=== PATIENT | female | born 1990 | race Caucasian/White ===

== ENCOUNTER 2018-07-25 14:01 | Day surgery (SDC) | payer MEDICAID ==
[~2018-07-25] VITALS: Ht 172.7 cm; Wt 104.3 kg
[2018-07-25] VITALS (10 sets, daily range): BP systolic 90–124; BP diastolic 39–83
[~2018-07-25 14:01] MED LIST: ACET325T38 PO; ALPR1TAB21; CEPH500C PO; DIPH25CA79 PO; FERR325C PO; FERR325T18 PO; FOLI0.4T2; HYDR1CAP2 PO; HYDR1TAB PO; IBP800T PO; IBUP-1773 PO; METR500T PO; NITR-65 PO; ONDA-41 PO; ONDA4TAB11 PO; OXYC-12 PO; PREN-115 PO; PREN1TAB39 PO; PRM25T PO; vit d
--- NOTE | 2018-07-25 14:26 | NUR ---
pt going through 5-6 pads per hour.
[2018-07-25] MEDS ORDERED: NS IV ONE (14:30)
[2018-07-25 14:32] LABS: BASOPHILS % (AUTO) 0 % (0-10); EOSINOPHILS # (AUTO) 0.5 10^3/uL (0.0-0.3); EOSINOPHILS % (AUTO) 3 % (0-10); HEMATOCRIT 35 % (35-52); HEMOGLOBIN 10.9 G/DL (11.5-16.0); LYMPHOCYTES % (AUTO) 12 % (12-44); MEAN CORPUSCULAR HEMOGLOBIN 22 PG (25-34); MEAN CORPUSCULAR HGB CONC 31 G/DL (32-36); MEAN CORPUSCULAR VOLUME 71 FL (80-99); MEAN PLATELET VOLUME 11.4 FL (7.4-10.4); MONOCYTES # (AUTO) 0.7 X 10^3 (0.0-1.0); MONOCYTES % (AUTO) 4 % (0-12); NEUTROPHILS # (AUTO) 12.9 X 10^3 (1.8-7.8); NEUTROPHILS % (AUTO) 80 % (42-75); PLATELET COUNT 162 10^3/uL (130-400); RED CELL DISTRIBUTION WIDTH 18.4 % (10.0-14.5); WHITE BLOOD COUNT 16.1 10^3/uL (4.3-11.0)
[2018-07-25 14:43] LABS: ALANINE AMINOTRANSFERASE 11 U/L (0-55); ALBUMIN 4.1 GM/DL (3.2-4.5); ALKALINE PHOSPHATASE 67 U/L (40-136); BILIRUBIN,TOTAL 0.3 MG/DL (0.1-1.0); BUN/CREATININE RATIO 8; CALCIUM 9.6 MG/DL (8.5-10.1); CARBON DIOXIDE 20 MMOL/L (21-32); CHLORIDE 108 MMOL/L (98-107); CREATININE SERUM 0.86 MG/DL (0.60-1.30); GFR ESTIMATED > 60; GLUCOSE 141 MG/DL (70-105); POTASSIUM 4.1 MMOL/L (3.6-5.0); SODIUM 139 MMOL/L (135-145); TOTAL PROTEIN 7.7 GM/DL (6.4-8.2)
[2018-07-25 14:54] LABS: ANISOCYTOSIS SLIGHT; BAND NEUTROPHILS 7 %; ELLIPT/OVALOCYTES SLIGHT; HYPOCHROMASIA SLIGHT; LYMPHOCYTES % (MANUAL) 12 %; MICROCYTOSIS MODERATE; MONOCYTES % (MANUAL) 6 %; NEUTROPHILS % (MANUAL) 75 %; POIKILOCYTOSIS SLIGHT
--- NOTE | 2018-07-25 15:04 | ED GU-Female ---
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 PT STATES SHE HAD LIGHT SPOTTING ON THURSDAY. PT STATES SHE STARTED HAVING SEVERE CRAMPING AND BLEEDING TODAY AND YESTERDAY. PT STATES THIS IS HER 4TH MISCARRIAGE AND 9TH . PT STATES HAVING LARGE CLOTS TODAY. PT STATES SHE HAS A HISTORY OF CHRONIC ANEMIA. Nursing Sepsis Screen: No Definite Risk Source: patient Exam Limitations: no limitations History of Present Illness Date Seen by Provider: July 25, 2018 Time Seen by Provider: 14:16 Initial Comments Here with report of miscarriage. Having large clots and lots of bleeding today over the last hour and has soaked 5 pads in her parents currently. Complaints of some abdominal cramping. She's had multiple miscarriages previously. She has not had ultrasound yet on this and has not had OB appointment yet. She plans to follow with Dr. Doyle. Reports that she's chronically anemic. Timing/Duration: this morning, getting worse Severity/Quality: moderate, cramping Location: unknown, suprapubic Radiation: vaginal Activities at Onset: none Prior Genitourinary Problems: similar symptoms Modifying Factors: Worsens With Movement; Improves With Resting Associated Symptoms: abdominal pain; No fever/chills, No lower back pain, No nausea/vomiting, No urinary frequency Allergies and Home Medications Allergies Coded Allergies: NKANo Known Allergies (Verified Allergy, Unknown, 06/02/06) Home Medications Acetaminophen 325 Mg Tablet, 325 MG PO PRN, (Reported) Diphenhydramine HCl 25 Mg Capsule, 50 MG PO PRN, (Reported) Ferrous Sulfate 325 Mg Tablet, 325 MG PO TID Prescribed by: MARIA TERESA DOYLE on 07/19/15702 Ibuprofen 600 Mg Tablet, 600 MG PO Q6H Prescribed by: MARIA TERESA DOYLE on 07/19/15702 Patient Home Medication List Home Medication List Reviewed: Yes Review of Systems Review of Systems Constitutional: see HPI; No chills, No fever EENTM: no symptoms reported Respiratory: no symptoms reported Cardiovascular: no symptoms reported Gastrointestinal: see HPI Genitourinary: see HPI : Yes Musculoskeletal: no symptoms reported All Other Systemes Reviewed Negative Unless Noted: Yes Past Poisgfp-Jsakay-Vpxzvi Hx Past Med/Social Hx: Reviewed Nursing Past Med/Soc Hx Patient Social History Alcohol Use: Denies Use Recreational Drug Use: No Smoking Status: Never a Smoker Recent Foreign Travel: No Contact w/Someone Who Travel: No Recent Infectious Disease Expo: No Recent Hopitalizations: No Physical Abuse: No Sexual Abuse: No Mistreated: No Fear: No Immunizations Up To Date Tetanus Booster (TDap): Unknown PED Vaccines UTD: Yes Seasonal Allergies Seasonal Allergies: Yes Past Medical History Surgeries: Yes (fix nose fx) Gallbladder, Tonsillectomy Respiratory: No Cardiac: No Neurological: No Last Menstrual Period: May 20, 2018 Hx : 9 Hx Para: 5 Hx Total # of Abortions (Sp): 4 Reproductive Disorders: No Female Reproductive Disorders: Denies Sexually Transmitted Disease: No HIV/AIDS: No Bladder Infection Gastrointestinal: No Musculoskeletal: No Endocrine: No Cancer: No Psychosocial: No Integumentary: No Blood Disorders: Yes (chronic anemia) Adverse Reaction/Blood Tranf: No Family Medical History Reviewed Nursing Family Hx FHx: skin cancer 19 FATHER No Pertinent Family Hx Physical Exam Vital Signs Vital Signs - First Documented 07/25/18 14:01 Temp 97.4 Pulse 78 Resp 18 B/P (MAP) 128/79 (95) Capillary Refill : Less Than 3 Seconds Height, Weight, BMI Height: 5'8" Weight: 230lbs. 0.0oz. [id number]; 38.8 BMI Method:Stated General Appearance: WD/WN, no apparent distress HEENT: PERRL/EOMI, pharynx normal Neck: full range of motion, supple Cardiovascular: regular rate, rhythm, no murmur Respiratory: lungs clear, normal breath sounds Gastrointestinal: non tender, soft Back: normal inspection, no CVA tenderness, no vertebral tenderness Extremities: non-tender, normal inspection Neurologic/Psychiatric: alert, oriented x 3 Skin: normal color, warm/dry Progress/Results/Core Measures Suspected Sepsis Recent Fever Within 48 Hours: No Infection Criteria Present: None New/Unexplained Altered Menta: No Sepsis Screen: No Definite Risk SIRS Temperature:97.4 Pulse: 78 Respiratory Rate: 18 Laboratory Tests 07/25/18 14:10: White Blood Count 16.1H Blood Pressure 128 /79 Mean: 95 Laboratory Tests 07/25/18 14:10: Creatinine 0.86, Platelet Count 162, Total Bilirubin 0.3 Results/Orders Lab Results Laboratory Tests Test 07/25/18 14:10 Range/Units White Blood Count 16.1 H 4.3-11.0 10^3/uL Red Blood Count 5.00 4.35-5.85 10^6/uL Hemoglobin 10.9 L 11.5-16.0 G/DL Hematocrit 35 35-52 % Mean Corpuscular Volume 71 L 80-99 FL Mean Corpuscular Hemoglobin 22 L 25-34 PG Mean Corpuscular Hemoglobin Concent 31 L 32-36 G/DL Red Cell Distribution Width 18.4 H 10.0-14.5 % Platelet Count 162 130-400 10^3/uL Mean Platelet Volume 11.4 H 7.4-10.4 FL Neutrophils (%) (Auto) 80 H 42-75 % Lymphocytes (%) (Auto) 12 12-44 % Monocytes (%) (Auto) 4 0-12 % Eosinophils (%) (Auto) 3 0-10 % Basophils (%) (Auto) 0 0-10 % Neutrophils # (Auto) 12.9 H 1.8-7.8 X 10^3 Lymphocytes # (Auto) 2.0 1.0-4.0 X 10^3 Monocytes # (Auto) 0.7 0.0-1.0 X 10^3 Eosinophils # (Auto) 0.5 H 0.0-0.3 10^3/uL Basophils # (Auto) 0.0 0.0-0.1 10^3/uL Neutrophils % (Manual) 75 % Lymphocytes % (Manual) 12 % Monocytes % (Manual) 6 % Band Neutrophils 7 % Hypochromasia SLIGHT Poikilocytosis SLIGHT Anisocytosis SLIGHT Microcytosis MODERATE Elliptocytes SLIGHT Sodium Level 139 135-145 MMOL/L Potassium Level 4.1 3.6-5.0 MMOL/L Chloride Level 108 H 98-107 MMOL/L Carbon Dioxide Level 20 L 21-32 MMOL/L Anion Gap 11 5-14 MMOL/L Blood Urea Nitrogen 7 7-18 MG/DL Creatinine 0.86 0.60-1.30 MG/DL Estimat Glomerular Filtration Rate > 60 BUN/Creatinine Ratio 8 Glucose Level 141 H 70-105 MG/DL Calcium Level 9.6 8.5-10.1 MG/DL Corrected Calcium 9.5 8.5-10.1 MG/DL Total Bilirubin 0.3 0.1-1.0 MG/DL Aspartate Amino Transf (AST/SGOT) 25 5-34 U/L Alanine Aminotransferase (ALT/SGPT) 11 0-55 U/L Alkaline Phosphatase 67 40-136 U/L Total Protein 7.7 6.4-8.2 GM/DL Albumin 4.1 3.2-4.5 GM/DL Human Chorionic Gonadotropin, Quant 8 H <5 MIU/ML My Orders Orders - JASPAL CHAPMAN MD Cbc With Automated Diff (07/25/18 14:20) Comprehensive Metabolic Panel (07/25/18 14:20) Red Cells Leukocytes Reduced (07/25/18 14:20) Hcg,Quantitative (07/25/18 14:20) Ed Iv/Invasive Line Start (07/25/18 14:20) Ns Iv 1000 Ml (Sodium Chloride 0.9%) (07/25/18 14:30) Type And Screen (07/25/18 14:20) Manual Differential (07/25/18 14:10) Rhogam Administration (07/25/18 15:19) Medications Given in ED Current Medications Medications Dose Ordered Sig/Rayna Route Start Time Stop Time Status Last Admin Dose Admin Sodium Chloride 3,129.78 ml @ 3,129.78 mls/hr ONCE ONCE IV 07/25/18 14:30 07/25/18 15:29 DC 07/25/18 14:33 3,129.78 MLS/HR Vital Signs/I&O 07/25/18 14:01 Temp 97.4 Pulse 78 Resp 18 B/P (MAP) 128/79 (95) Capillary Refill : Less Than 3 Seconds Blood Pressure Mean: 95 Progress Note : Progress Note Seen and evaluated. Patient has significant amount of bleeding on arrival. Blood clots noted at the vaginal opening and cleared. Still bleeding. Bedside ultrasound performed that shows hyperechoic structures within the uterus that appeared to be complex and more like blood and tissue. No obvious pole or heart tones noted. Labs ordered including type and cross for 2 units. Normal saline 1 L bolus ordered. I did discuss the case with Dr. Davis at 1421. He will come to the emergency department and evaluate the patient. 1525: Dr. Davis has evaluated the patient and patient will go to surgery. Auralgan has been ordered as she is A- and this will be administered. Bleeding has slowed a little. Patient does want to get D&C and this has been set up and surgically has been called. Patient to go the OR. Patient and family agree with plan. Departure Communication (Admissions) Time/Spoke to Admitting Phy: 14:21 Impression Primary Impression: Incomplete miscarriage with blood clot Disposition: ADMITTED INPATIENT Condition: Stable Admissions Decision to Admit Reason: Admit from ER (General) Decision to Admit/Date: July 25, 2018 Time/Decision to Admit Time: 15:00 Departure-Patient Inst. Referrals: MARIA TERESA DOYLE DO (PCP/Family) Primary Care Physician JASPAL CHAPMAN MD July 25, 2018 15:04
[2018-07-25] MEDS ORDERED: D5 LR IV SOLUTION 1,000 ML IV SCH (16:09)
[2018-07-25] MEDS ORDERED: OXYC1TAB87 PO (16:12)
[2018-07-25] MEDS ORDERED: IBUP-1780 PO (16:12)
--- NOTE | 2018-07-25 16:13 | Progress Note-Pre Operative ---
Pre-Operative Progress Note H&P Reviewed The H&P was reviewed, patient examined and no changes noted. Date Seen by Provider: July 25, 2018 Time Seen by Provider: 16:13 Date H&P Reviewed: July 25, 2018 Time H&P Reviewed: 16:13 Pre-Operative Diagnosis: First trimester missed TYLER CUENCA MD July 25, 2018 16:13
--- NOTE | 2018-07-25 16:13 | Discharge Instructions ---
Discharge Instructions Discharge Medications New, Converted or Re-Newed RX: RX on Chart Patient Instructions Patient Instructions: As directed Return to The Hospital For: as directed Activity & Diet Discharge Diet: No Restrictions Activity as Tolerated: No Orders-Post D/C & Referrals Follow Up Appt: Call to make follow up appt. for patient in 2 weeks. Activity: Rest for 24 hours, than as tolerated. Please call in RX to patient pharmacy. Diet: As tolerated-Clear Liquids only if nauseated. Tomorrow, may shower or tub bathe as desired. No driving for 24 hours, no alcoholic beverages for 24 hours, and nothing per vagina (no tampons, douching, or intercoarse) for 2 weeks. Patient to return to the clinic as soon as possible for: Temperature greater than 101F, Severe Pain, Foul discharge from incision or vagina, Excessive Bleeding (more than a period). TYLER CUENCA MD July 25, 2018 16:13
--- NOTE | 2018-07-25 16:14 | Progress Note-Post Operative ---
Post-Operative Progess Note Surgeon (s)/Outreach Analyst (s) Surgeon TYLER CUENCA MD Outreach Analyst: no Pre-Operative Diagnosis First trimester missed Post-Operative Diagnosis Same with pathology pending Procedure & Operative Findings Date of Procedure 07/25/18 Procedure Performed/Findings D&C for missed Anesthesia Type GETA Estimated Blood Loss Estimated blood loss (mL): 100 Specimens/Packing Specimens Removed Uterine contents/products of conception Packing: no TYLER CUENCA MD July 25, 2018 16:14
[2018-07-25] MEDS ORDERED: ONDANSETRON 4 MG/2 ML (SDV) Z0FRAN IVP PRN ×2 (16:15→18:15)
[2018-07-25] MEDS ORDERED: MEPERIDINE (DEMEROL) INJ 100 MG/ML IM ONE (16:15)
[2018-07-25] MEDS ORDERED: KETOROLAC 30 MG/ML VIAL IVP ONE (16:15)
[2018-07-25] MEDS ORDERED: oxyCODONE/APAP 5/325MG (PERCOCET 5) TABLET PO PRN (16:15)
[2018-07-25] MEDS ORDERED: PROMETHAZINE INJ 25 MG/ML (PHENERGAN) AMP IM ONE (16:15)
--- NOTE | 2018-07-25 16:17 | History & Physical ---
History and Physical Date Seen by Provider: July 25, 2018 Time Seen by Provider: 16:14 This patient is a 28-year-old A3 white female currently in her first trimester. She has had bleeding 1 week with dramatic increase today passing large frequent clots and having incapacitating cramps. She denies any bowel or bladder problems she's had no other problems to date and has been by her knowledge for 3 weeks. Bedside ultrasound demonstrated debris and the uterine cavity with no evidence of viable . Allergies are none Medications are none Past medical history is significant for obesity and anemia Surgical history is significant for cholecystectomy and dental surgery and a T&A in childhood Obstetric history includes 5 term spontaneous vaginal deliveries 3 miscarriages and the current Social history patient denies tobacco and alcohol use she does admit to occasional marijuana use Family history is negative for diabetes or hypertension HEENT exam is normal Neck is supple no lymphadenopathy no thyromegaly Abdomen is soft nontender nondistended is somewhat obese Extremities show no clubbing or cyanosis. There is no Homans sign. Pelvic exam is performed and its limited there are large clots in the vaginal vault. Transvaginal ultrasound was accomplished with the findings as noted above Laboratory Tests Test 07/25/18 14:10 07/25/18 16:08 Range/Units White Blood Count 16.1 H 4.3-11.0 10^3/uL Red Blood Count 5.00 4.35-5.85 10^6/uL Hemoglobin 10.9 L 11.5-16.0 G/DL Hematocrit 35 35-52 % Mean Corpuscular Volume 71 L 80-99 FL Mean Corpuscular Hemoglobin 22 L 25-34 PG Mean Corpuscular Hemoglobin Concent 31 L 32-36 G/DL Red Cell Distribution Width 18.4 H 10.0-14.5 % Platelet Count 162 130-400 10^3/uL Mean Platelet Volume 11.4 H 7.4-10.4 FL Neutrophils (%) (Auto) 80 H 42-75 % Lymphocytes (%) (Auto) 12 12-44 % Monocytes (%) (Auto) 4 0-12 % Eosinophils (%) (Auto) 3 0-10 % Basophils (%) (Auto) 0 0-10 % Neutrophils # (Auto) 12.9 H 1.8-7.8 X 10^3 Lymphocytes # (Auto) 2.0 1.0-4.0 X 10^3 Monocytes # (Auto) 0.7 0.0-1.0 X 10^3 Eosinophils # (Auto) 0.5 H 0.0-0.3 10^3/uL Basophils # (Auto) 0.0 0.0-0.1 10^3/uL Neutrophils % (Manual) 75 % Lymphocytes % (Manual) 12 % Monocytes % (Manual) 6 % Band Neutrophils 7 % Hypochromasia SLIGHT Poikilocytosis SLIGHT Anisocytosis SLIGHT Microcytosis MODERATE Elliptocytes SLIGHT Sodium Level 139 135-145 MMOL/L Potassium Level 4.1 3.6-5.0 MMOL/L Chloride Level 108 H 98-107 MMOL/L Carbon Dioxide Level 20 L 21-32 MMOL/L Anion Gap 11 5-14 MMOL/L Blood Urea Nitrogen 7 7-18 MG/DL Creatinine 0.86 0.60-1.30 MG/DL Estimat Glomerular Filtration Rate > 60 BUN/Creatinine Ratio 8 Glucose Level 141 H 70-105 MG/DL Calcium Level 9.6 8.5-10.1 MG/DL Corrected Calcium 9.5 8.5-10.1 MG/DL Total Bilirubin 0.3 0.1-1.0 MG/DL Aspartate Amino Transf (AST/SGOT) 25 5-34 U/L Alanine Aminotransferase (ALT/SGPT) 11 0-55 U/L Alkaline Phosphatase 67 40-136 U/L Total Protein 7.7 6.4-8.2 GM/DL Albumin 4.1 3.2-4.5 GM/DL Human Chorionic Gonadotropin, Quant 2128 H <5 MIU/ML Patient is known to be Rh- and has received a dose of program in the emergency department on this date Assessment and plan first trimester incomplete/missed . Plan is to proceed to the operating room for D&C now. Surgical risk complication recovering follow-up have been discussed. Patient does want to proceed and all of her questions were answered Missed /incomplete in the first trimester Allergies and Home Medications Allergies Coded Allergies: NKANo Known Allergies (Verified Allergy, Unknown, 06/02/06) Home Medications Acetaminophen 325 Mg Tablet, 325 MG PO PRN, (Reported) Diphenhydramine HCl 25 Mg Capsule, 50 MG PO PRN, (Reported) Ferrous Sulfate 325 Mg Tablet, 325 MG PO TID Prescribed by: MARIA TERESA DOYLE on 07/19/15702 Ibuprofen 600 Mg Tablet, 600 MG PO Q6H Prescribed by: MARIA TERESA DOYLE on 07/19/15702 Ibuprofen 800 Mg Tablet, 800 MG PO Q6H PRN for PAIN Prescribed by: TYLER CHEUNG on 07/25/181611 Oxycodone HCl/Acetaminophen 1 Each Tablet, 1 TAB PO Q4H Prescribed by: TYLER CHEUNG on 07/25/181611 Patient Home Medication List Home Medication List Reviewed: Yes TYLER CUENCA MD July 25, 2018 16:17
[2018-07-25 16:18] LABS: BILIRUBIN,URINE NEGATIVE (NEGATIVE); CLARITY,URINE CLEAR; COLOR,URINE YELLOW; GLUCOSE, URINE (UA) NEGATIVE (NEGATIVE); KETONES,URINE NEGATIVE (NEGATIVE); LEUKOCYTE ESTERASE ,URINE NEGATIVE (NEGATIVE); NITRITE,URINE NEGATIVE (NEGATIVE); PH,URINE 7 (5-9); PROTEIN,URINE NEGATIVE (NEGATIVE); UROBILINOGEN,URINE NORMAL (NORMAL)
[2018-07-25 16:27] LABS: BACTERIA,URINE NEGATIVE /HPF; SQUAMOUS EPITHELIAL CELL,UR RARE /HPF
[2018-07-25] MEDS ORDERED: SEVOFLURANE (ULTANE) 15 ML INHAL SOLN ONE (16:41)
[2018-07-25] MEDS ORDERED: MIDAZOLAM 2 MG/2 ML (VERSED) VIAL ONE (16:41)
[2018-07-25] MEDS ORDERED: DEXAMETHASONE 10 MG/ML (DECADRON) 1 ML VIAL ONE (16:41)
[2018-07-25] MEDS ORDERED: SUCCINYLCHOLINE INJ 100 MG/5 ML SYR ONE (16:41)
[2018-07-25] MEDS ORDERED: fentaNYL INJECTION 100 MCG/2 ML AMP ONE (16:41)
[2018-07-25] MEDS ORDERED: proPOfol 200 MG/20 ML (DIPRIVAN) VIAL IV ONE ×2 (16:41→17:36)
[2018-07-25] MEDS ORDERED: ONDANSETRON 4 MG/2 ML (SDV) Z0FRAN ONE (16:41)
[2018-07-25] MEDS ORDERED: LACTATED RINGERS 1,000 ML IV PRN (17:06)
[2018-07-25] MEDS ORDERED: FAMOTIDINE 20MG/2ML IV (PEPCID) ONE (17:15)
[2018-07-25] MEDS ORDERED: ceFAZolin INJECTION 1,000 MG ONE (17:19)
[2018-07-25] MEDS ORDERED: ROCURONIUM 10 MG/ML 5 ML SYRINGE IV ONE (17:26)
[2018-07-25] MEDS ORDERED: ceFAZolin INJECTION 1,000 MG in WATER (STERILE) FOR INJECTION 10 ML IV ONE (17:35)
[2018-07-25] MEDS ORDERED: HYDROmorphone 2 MG/ML VIAL (DILAUDID) ONE (17:37)
[2018-07-25] MEDS ORDERED: HYDROmorphone 2 MG/ML VIAL (DILAUDID) IV ONE (18:15)
--- NOTE | 2018-07-25 19:00 | NUR ---
PT ARRIVED TO UNIT FROM SURGERY, REPORT RECEIVED FROM ANGEL.
--- NOTE | 2018-07-25 19:01 | OPERATIVE REPORT ---
DATE OF SERVICE: 07/25/2018 PREOPERATIVE DIAGNOSIS: Missed . POSTOPERATIVE DIAGNOSIS: Missed . OPERATIVE PROCEDURE: D and C for missed AB in the first trimester. OPERATIVE DESCRIPTION: With the patient in supine position under satisfactory general anesthesia, she was repositioned in dorsal lithotomy position in the [facility] stirrups and prepped and draped in the usual fashion for vaginal surgery. Urinary bladder was drained with a straight catheter. A weighted speculum was placed in the posterior fornix of vagina. The cervix was exposed and grasped anteriorly with single tooth tenaculum. Uterus was already dilated and it easily accommodated a #10 curved suction curette. There was tissue present at the cervical os tissue and the uterine contents were suction curettaged with removal of large amount of trophoblastic and decidual appearing tissue as well as blood clot and debris. The endometrial cavity was then sharply curettaged in all 4 quadrants to good uterine cry allowing for removal of a fairly significant aliquot of additional tissue. The endometrial cavity was suction curettaged one more time and then examined for bleeding. There was minimal bleeding at the cervical os. The tenaculum was removed. There was no bleeding from the puncture sites after use of silver nitrate stick on one of the puncture sites. Sponge and needle counts were correct at the end of procedure. Estimated blood loss was around 150 to 200 mL. The patient tolerated the procedure well and was uneventfully awakened from her general anesthesia and transferred to recovery room in stable condition with plans for discharge home PAR. Job ID: [id number] DocumentID: [id number] Dictated Date: 07/25/2018 17:48:35 Nanotechnology Engineering Technologist Date: 07/25/2018 19:00:48 Dictated By: TYLER CUENCA MD
--- NOTE | 2018-07-25 19:15 | NUR ---
ASSESSMENT COMPLETED. PT DENIES ANY NAUSEA/VOMITING. DENIES ANY URGE TO VOID. V-PAD HAS MINIMAL BLEEDING. S/O AT BEDSIDE. VS TAKEN AND STABLE. WILL CONTINUE TO MONITOR.
--- NOTE | 2018-07-25 19:30 | NUR ---
pt hungry, meal tray ordered.
--- NOTE | 2018-07-25 20:05 | Anesthesia-General Post-Op ---
General Patient Condition Mental Status/LOC: Same as Preop Cardiovascular: Satisfactory Nausea/Vomiting: Absent Respiratory: Satisfactory Pain: Controlled Complications: Absent Post Op Complications Complications None Follow Up Care/Instructions Patient Instructions None needed. Anesthesia/Patient Condition Patient Condition Patient is doing well, no complaints, stable vital signs, no apparent adverse anesthesia problems. No complications reported per nursing. D/C home per [facility] Criteria: Yes SAMIRA HADDAD CRNA July 25, 2018 20:05
--- NOTE | 2018-07-25 20:30 | NUR ---
pt sitting up in bed eating. denies any nausea/vomiting/pain. s/o remains at bedside.
--- NOTE | 2018-07-25 20:55 | NUR ---
pt up to the bathroom. positive void of 400cc of clear yellow urine.
--- NOTE | 2018-07-25 21:00 | NUR ---
called with update. order to discharge home received.
--- NOTE | 2018-07-25 21:20 | NUR ---
discharge instructions verbalized with pt. pt will call office to schedule follow up appointment. No questions at this time. s/o at bedside. pt dc'd home. pt taken down to pvt car. no distress noted
--- NOTE | 2018-07-26 10:56 | Anesthesia-General Post-Op ---
General Patient Condition Mental Status/LOC: Same as Preop Cardiovascular: Satisfactory Nausea/Vomiting: Absent Respiratory: Satisfactory Pain: Controlled Complications: Absent Post Op Complications Complications None Follow Up Care/Instructions Patient Instructions None needed. Anesthesia/Patient Condition Patient Condition Patient is doing well, no complaints, stable vital signs, no apparent adverse anesthesia problems. No complications reported per nursing. D/C home per [facility] Criteria: Yes VICENTA SANCHEZ CRNA July 26, 2018 10:56
== END 2018-07-25 21:20 | disposition home or self-care (01) ==
LOC: EDUNIT# 14:01 → ER 14:02 → SDC 16:02 → WS 19:00 → SDC 21:20
PROVIDERS: ATTEND Obstetrics & Gynecology
DX: O02.1 Missed abortion (principal); D64.9 Anemia, unspecified; Z79.899 Other long term (current) drug therapy
CPT/HCPCS: 36415; 80053; 81000; 84702; 85007; 85027; 86850; 86900; 86901; 86920

== ENCOUNTER 2021-05-09 10:32 | Emergency (ER) | payer MEDICAID ==
[~2021-05-09] VITALS: Ht 172 cm; Wt 113.0 kg
[~2021-05-09 10:32] MED LIST changes: +IBUP-1780 PO; +OXYC1TAB87 PO
[2021-05-09] MEDS ORDERED: HYDROcodone/APAP 7.5 MG/325 MG (LORTAB, LORCET PLUS) TABLET PO STA (11:09)
--- NOTE | 2021-05-09 11:13 | ED Back Pain ---
General Stated Complaint: BACK PAIN Source of Information: Patient Exam Limitations: No Limitations History of Present Illness Date Seen by Provider: May 09, 2021 Time Seen by Provider: 11:10 Initial Comments Patient is a 30-year-old female presents ED with back pain. Pain started on Thursday. Described as a squeezing cramping pain with intermittent sharp pain that has been pretty much constant. This became worse today. Went to urgent care this morning had a negative urine was recommended come to ED. She does have chronic back pain from degenerative disc disease. She states this pain is worse. No history of kidney stones. She states she has been urinating frequently however drinking more water concern for possible UTI. She finished her menstrual cycle last year. She did have some pain that radiates to the abdomen a few days ago but that has improved. She reports nausea without vomiting or diarrhea. Any type of movement makes the pain worse. She denies any falls or traumas. No bowel or urine incontinence, saddle paresthesia, lower extremity weakness. Allergies and Home Medications Allergies Coded Allergies: Mansi Known Allergies (Verified Allergy, Unknown, 06/02/06) Patient Home Medication List Home Medication List Reviewed: Yes Acetaminophen (Tylenol) 325 Mg Tablet, 325 MG PO PRN, (Reported) Entered as Reported by: ANAMIKA URENA on 07/18/15 1114 Diphenhydramine HCl (Benadryl) 25 Mg Capsule, 50 MG PO PRN, (Reported) Entered as Reported by: ANAMIKA URENA on 07/18/15 1114 Ferrous Sulfate (Ferrous Sulfate) 325 Mg Tablet, 325 MG PO TID Prescribed by: MARIA TERESA DOYLE on 07/19/15 0703 Hydrocodone/Acetaminophen (Hydrocodone-Acetamin 5-325 mg) 1 Each Tablet, 1 TAB PO Q4H PRN for PAIN-MODERATE (5-7) Prescribed by: JENN ROBERTS on 05/09/21 1215 Ibuprofen (Ibuprofen) 600 Mg Tablet, 600 MG PO Q6H Prescribed by: MARIA TERESA DOYLE on 07/19/15 0703 Ibuprofen (Ibuprofen) 800 Mg Tablet, 800 MG PO Q6H PRN for PAIN Prescribed by: TYLER CHEUNG on 07/25/18 1612 Meloxicam (Meloxicam) 15 Mg Tablet, 15 MG PO DAILY Prescribed by: JENN ROBERTS on 05/09/21 1215 Methylprednisolone (Methylprednisolone Dose Pack) 4 Mg Tab.ds.pk, 4 MG PO UD Prescribed by: JENN ROBERTS on 05/09/21 1215 Metronidazole (Metronidazole) 500 Mg Tablet, 500 MG PO BID Prescribed by: JENN ROBERTS on 05/09/21 1216 Oxycodone HCl/Acetaminophen (Percocet 5-325 mg Tablet) 1 Each Tablet, 1 TAB PO Q4H Prescribed by: TYLER CHEUNG on 07/25/18 1612 Vit #108/Iron/Fa ( One Tablet) 1 Each Tablet, 1 EACH PO, (Reported) Entered as Reported by: SHEILA SURESH on 08/20/12 193 Review of Systems Constitutional: No chills, No diaphoresis, No fever, No malaise EENTM: No blurred vision, No mouth pain, No mouth swelling Cardiovascular: No chest pain Gastrointestinal: No abdominal pain, No diarrhea, No nausea, No vomiting Musculoskeletal: back pain, joint pain, muscle pain, muscle stiffness; No muscle cramps Skin: No change in color, No change in hair/nails All Other Systems Reviewed Negative Unless Noted: Yes Past Merwfvw-[id number]-Zpcxcg Hx Immunizations Up To Date Tetanus Booster (TDap): Unknown PED Vaccines UTD: Yes Seasonal Allergies Seasonal Allergies: Yes Past Medical History Surgeries: Yes (fix nose fx) Gallbladder, Tonsillectomy Respiratory: No Cardiac: No Neurological: No Reproductive Disorders: No Female Reproductive Disorders: Denies Sexually Transmitted Disease: No HIV/AIDS: No Bladder Infection Gastrointestinal: No Musculoskeletal: No Endocrine: No Cancer: No Psychosocial: No Integumentary: No Blood Disorders: Yes (chronic anemia) Adverse Reaction/Blood Tranf: No Family Medical History FHx: skin cancer 19 FATHER No Pertinent Family Hx Physical Exam Vital Signs Vital Signs - First Documented 05/09/21 11:04 Temp 36.5 Pulse 76 Resp 17 B/P (MAP) 150/95 (113) Pulse Ox 99 O2 Delivery Room Air Capillary Refill : Height, Weight, BMI Height: 5'8" Weight: 230lbs. 0.0oz. [id number]; 38.8 BMI Method:Stated General Appearance: No Apparent Distress, WD/WN HEENT: PERRL/EOMI, TMs Normal, Normal ENT Inspection, Pharynx Normal Neck: Full Range of Motion, Normal Inspection, Non Tender, Supple Cardiovascular: Regular Rate, Rhythm, No Edema, No Gallop, No JVD, No Murmur Respiratory: Chest Non Tender, Lungs Clear, Normal Breath Sounds, No Accessory Muscle Use Gastrointestinal: Normal Bowel Sounds, No Organomegaly, No Pulsatile Mass, Non Tender Back: Other (Lumbar midline tenderness. 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 Norm as Tested Skin: Normal Color, Warm/Dry Progress/Results/Core Measures Results/Orders Lab Results Laboratory Tests Test 05/09/21 11:21 Range/Units Urine Color YELLOW Urine Clarity CLEAR Urine pH 7.0 5-9 Urine Specific [place] 1.020 1.016-1.022 Urine Protein NEGATIVE NEGATIVE Urine Glucose (UA) NEGATIVE NEGATIVE Urine Ketones NEGATIVE NEGATIVE Urine Nitrite NEGATIVE NEGATIVE Urine Bilirubin NEGATIVE NEGATIVE Urine Urobilinogen 0.2 < = 1.0 MG/DL Urine Leukocyte Esterase 2+ H NEGATIVE Urine RBC (Auto) NEGATIVE NEGATIVE Urine RBC NONE /HPF Urine WBC 2-5 /HPF Urine Squamous Epithelial Cells 0-2 /HPF Urine Crystals NONE /LPF Urine Bacteria FEW H /HPF Urine Casts NONE /LPF Urine Mucus NEGATIVE /LPF Urine Trichomonas FEW H /HPF Urine Culture Indicated NO Urine Test NEGATIVE NEGATIVE My Orders Orders - AILYN GALINDO Ua Culture If Indicated (05/09/21 11:01) Hcg,Qualitative Urine (05/09/21 11:01) Ketorolac Injection (Toradol Injection) (05/09/21 11:15) Orphenadrine Inj (Ed Only) (Norflex Inje (05/09/21 11:15) Hydrocodone/Apap 7.5/325 Tab (Lortab 7. (05/09/21 11:09) Medications Given in ED Current Medications Medications Dose Ordered Sig/Rayna Route Start Time Stop Time Status Last Admin Dose Admin Ketorolac Tromethamine 30 mg ONCE ONCE IM 05/09/21 11:15 05/09/21 11:16 DC 05/09/21 11:18 30 MG Orphenadrine Citrate 60 mg ONCE ONCE IM 05/09/21 11:15 05/09/21 11:16 DC 05/09/21 11:18 60 MG Vital Signs/I&O 05/09/21 05/09/21 11:04 12:20 Temp 36.5 36.5 Pulse 76 74 Resp 17 17 B/P (MAP) 150/95 (113) 147/90 Pulse Ox 99 99 O2 Delivery Room Air Room Air Departure Communication (Admissions) History of degenerative disc disease. No recent trauma or fall. No neurological red flag findings such as bowel or urine cons, saddle paresthesia. History of sciatica type pain in her left leg. No acute changes at this time. Pain appears to be worse with movement. Urinalysis was ordered to rule out UTI versus potential kidney stone. She had no hematuria which is reassuring with potential UTI with positive trichomonas. Last time she had sexual intercourse was 2 years ago. Due to the positive trichomonas recommend Flagyl to be given at discharge. She was given IM pain medication with improvement of pain. Patient states she is feeling much better at this time. She had no abdominal pain or current radiating pain. Due to negative hematuria unlikely kidney stone. However if pain progress recommend recheck and CT or KUB to rule out potential kidney stone. Vital signs stable. Outpatient follow-up with PCP in 2 to 3 days for reevaluation peer return precaution were discussed Impression Primary Impression: Back pain Additional Impression: UTI (urinary tract infection) Disposition: 01 HOME, SELF-CARE Condition: Stable Departure-Patient Inst. Decision time for Depature: 12:13 Referrals: NO,LOCAL PHYSICIAN (PCP) Primary Care Physician JOSE MARIANO (Family) Primary Care Physician Patient Instructions: Back Muscle Strain (DC) Scripts Metronidazole (Metronidazole) 500 Mg Tablet 500 MG PO BID for 7 Days, #14 TAB Prov: AILYN GALINDO 05/09/21 Meloxicam (Meloxicam) 15 Mg Tablet 15 MG PO DAILY, #14 TAB Prov: AILYN GALINDO 05/09/21 Hydrocodone/Acetaminophen (Hydrocodone-Acetamin 5-325 mg) 1 Each Tablet 1 TAB PO Q4H PRN for PAIN-MODERATE (5-7), #10 TAB Prov: AILYN GALINDO 05/09/21 Methylprednisolone (Methylprednisolone Dose Pack) 4 Mg Tab.ds.pk 4 MG PO UD for 6 Days, #21 PKG PER DOSE PACK INSTRUCTIONS Prov: AILYN GALINDO 05/09/21 Work/School Note: Work Release Form Date Seen in the Emergency Department: May 09, 2021 Return to Work: May 13, 2021 AILYN GALINDO May 09, 2021 11:13
[2021-05-09] MEDS ORDERED: KETOROLAC 30 MG/ML VIAL IM ONE (11:15)
[2021-05-09] MEDS ORDERED: ORPHENADRINE 60 MG/2 ML (NORFLEX) AMP (ED ONLY) IM ONE (11:15)
[2021-05-09 11:29] LABS: BILIRUBIN,URINE NEGATIVE (NEGATIVE); CLARITY,URINE CLEAR; COLOR,URINE YELLOW; GLUCOSE, URINE (UA) NEGATIVE (NEGATIVE); KETONES,URINE NEGATIVE (NEGATIVE); LEUKOCYTE ESTERASE ,URINE 2+ (NEGATIVE); NITRITE,URINE NEGATIVE (NEGATIVE); PROTEIN,URINE NEGATIVE (NEGATIVE)
[2021-05-09 11:47] LABS: BACTERIA,URINE FEW /HPF; SQUAMOUS EPITHELIAL CELL,UR 0-2 /HPF; TRICHOMONAS,URINE FEW /HPF
[2021-05-09] MEDS ORDERED: ACHD5005 PO (12:15)
[2021-05-09] MEDS ORDERED: METH4TAB10 PO (12:15)
[2021-05-09] MEDS ORDERED: MELO15TA39 PO (12:15)
[2021-05-09] MEDS ORDERED: METR-145 PO (12:16)
[2021-05-09 12:20] VITALS: BP 147/90
== END 2021-05-09 12:21 | disposition home or self-care (01) ==
LOC: EDUNIT# 10:32 → ER 10:33
DX: N39.0 Urinary tract infection, site not specified (principal); A59.9 Trichomoniasis, unspecified; Z32.02 Encounter for pregnancy test, result negative
CPT/HCPCS: 81000; 84703; 99284